=== PATIENT | male | born 1995 | race Two or more races ===

== ENCOUNTER → 2018-05-01 | Outpatient (CLI) | payer OTHER ==
--- NOTE | 2018-05-01 15:29 | RADIOLOGY REPORT (SQ) ---
EXAM DESCRIPTION: NM 3 PHASE BONE SCAN COMPLETED DATE/TIME: 05/01/2018 3:11 pm REASON FOR STUDY: STRESS FX FIBULA COMPARISON: Recent plain films of the left ankle and left tibia and fibula. RADIONUCLIDE AND DOSE: 21.7 millicuries Tc99m MDP. The route of agent administration: Intravenous. ADDITIONAL DRUGS AND DOSES: None. TECHNIQUE: Following injection of the radiopharmaceutical, serial blood flow images acquired. Equil ibrium blood pool images then acquired. Routine delayed images at 3 hour acquired of the areas of cl inical concern with additional focused images as needed. AREA OF INTEREST: Left fibula LIMITATIONS: None. FINDINGS: VASCULAR FLOW IMAGES: No asymmetry or focal areas of hyperemia. BLOOD POOL IMAGES: No asymmetry or focal areas of soft-tissue hyper-perfusion. BONES: Normal visualization without asymmetric areas of photopenia or increased bony uptake of radiop harmaceutical. There is no asymmetrically increased activity in the left fibula to confirm the prese nce of a stress fracture. OTHER: No other significant finding. IMPRESSION: No asymmetrically increased activity is identified in the left fibula to confirm the pre sence of a stress fracture. Other findings as noted above RECOMMENDATION: Recommend clinical followup COMMENT: Quality measure 147: TECHNICAL DOCUMENTATION: JOB ID: [id number] [employer]- All Rights Reserved Reading location - IP/workstation name: [email or web address]
== END ==
LOC: RAD 10:53
PROVIDERS: ATTEND Podiatrist Foot & Ankle Surgery
DX: M84.364A Stress fracture, left fibula, initial encounter for fracture (principal)
CPT/HCPCS: 78315; A9561